=== PATIENT | male | born 1970 | race Caucasian/White ===

== ENCOUNTER 2022-01-01 04:00 | Emergency (ER) | payer OTHER | END 2022-01-01 04:51 | LOC: DL.ED 04:00 | DX: Z02.83 Encounter for blood-alcohol and blood-drug test (principal) | CPT/HCPCS: 36415; 80307; 99283 ==

== ENCOUNTER 2024-12-26 10:09 | Emergency (ER) | payer OTHER ==
[2024-12-26] MEDS: Ketorolac 30 MG/ML SDV IVPUSH ONE (10:20)
[2024-12-26 10:25] LABS: BASOPHILS PERCENT AUTO 0.4 % (0.0-1.0); EOSINOPHILS PERCENT AUTO 0.3 % (1.0-3.0); LYMPHOCYTES PERCENT AUTO 12.8 % (20.5-50.1); MONOCYTES PERCENT AUTO 17.1 % (2-8); NEUTROPHILS PERCENT AUTO 69.4 % (42.2-75.2); PLATELET COUNT,PLT 291 10^3/uL (150-450); RED BLOOD CELL COUNT 4.70 10^6/uL (4.6-6.2); WHITE BLOOD CELL COUNT,WBC 9.1 10^3/uL (5.0-10.0)
[2024-12-26] MEDS: Ondansetron 4 MG/2 ML SDV IVPUSH ONE (10:33)
[2024-12-26 10:43] LABS: INR 1.0 (0.9-1.2)
[2024-12-26 10:44] LABS: A/G RATIO 1.3; ALANINE AMINOTRANSFERASE,ALT 164.0 U/L (16-63); ASPARTATE AMNIOTRANSFERASE,AST 58.0 U/L (15-37); BILIRUBIN DIRECT 0.3 mg/dL (0.0-0.2); BILIRUBIN INDIRECT 0.5; BILIRUBIN TOTAL 0.8 mg/dL (0.2-1.0); BLOOD UREA NITROGEN,BUN 12.0 mg/dL (7-18); CARBON DIOXIDE,CO2 25.0 mmol/L (21-32); CHLORIDE,CL 100.0 mmol/L (98-107); CREATININE 0.72 mg/dL (0.70-1.30); EST CRCL DRUG DOSING (CG) 128.73 mL/min; ESTIMATED GFR 109.0 mL/min (>=60); GLUCOSE RANDOM 145.0 mg/dL (70-99); POTASSIUM,K 3.8 mmol/L (3.5-5.1); PROTEIN TOTAL,TP 7.9 g/dL (6.4-8.2); SODIUM,NA 137.0 mmol/L (136-145)
[2024-12-26] MEDS: Iopamidol 612 MG/ML 100 ML Bottle IVPUSH ONE (11:17)
[2024-12-26 13:16] LABS: APPEARANCE,URINE CLEAR (CLEAR); GLUCOSE,URINE NEGATIVE (NEGATIVE); OCCULT BLOOD,URINE NEGATIVE (NEGATIVE)
[2024-12-26 13:34] LABS: EPITHELIAL CELLS,URINE RARE /HPF (NOT SEEN)
== END 2024-12-26 14:05 | disposition home or self-care (01) ==
LOC: DL.ED 10:09
DX: R10.31 Right lower quadrant pain (principal); F17.210 Nicotine dependence, cigarettes, uncomplicated; Z88.0 Allergy status to penicillin; Z88.5 Allergy status to narcotic agent; Z79.899 Other long term (current) drug therapy
CPT/HCPCS: 36415; 74177; 80048; 80076; 81001; 82150; 83690; 85025; 85610; 96374; 96375; 96376; 99284; J1171; J1885; J2405; Q9967; 99283